=== PATIENT | male | born 1960 | race Caucasian/White ===

== ENCOUNTER 2017-05-07 15:06 | Observation (INO) | payer BC, OTHER ==
--- NOTE | 2017-05-07 16:19 | ED ---
General Adult HPI - General Chief complaint: Arrhythmia/Palpitations Stated complaint: Irr heartbeat Time Seen by Provider: 05/07/17 15:51 Source: patient, RN notes reviewed Mode of arrival: ambulatory Limitations: physical limitation - History of Present Illness Initial comments: Patient is a 56-year-old male with significant past medical history for hypertrophic cardiomyopathy presenting to the emergency room today with a chief complaint of shortness of breath. Patient does admit that he was at the family physician's office and was told come here to the emergency room for further evaluation. He does admit that he's had some symptoms of shortness breath. He states he's had this off-and-on for some time. He states seem to be a little worse today. He states he feels somewhat fatigued because he did not get much sleep last night. He states he had a routine appointment with his family doctor mentioned this to him. He states he had an EKG obtained and was advised complete emergency room for further evaluation. Patient currently denies any complaints or symptoms at this time. He denies any chest pain. States at times he notices the shortness of breath but is usually with exertion. No shortness breath at this time. Patient denies any recent fever, chills, chest pain, back pain, abdominal pain, nausea or vomiting, numbness or tingling, dysuria or hematuria, constipation or diarrhea, headaches or visual changes, or any other complaints. - Related Data Home Medications Medication Instructions Recorded Confirmed Aspirin 81 mg PO HS 02/07/14 05/07/17 Atorvastatin [Lipitor] 40 mg PO DAILY 02/07/14 05/07/17 Metoprolol Succinate [Toprol XL] 100 mg PO DAILY 05/07/17 05/07/17 Ubidecarenone [Co Q-10] 100 mg PO HS 05/07/17 05/07/17 Allergies Allergy/AdvReac Type Severity Reaction Status Date / Time No Known Allergies Allergy Verified 05/07/17 16:42 Review of Systems ROS Statement: Those systems with pertinent positive or pertinent negative responses have been documented in the HPI. ROS Other: All systems not noted in ROS Statement are negative. Past Medical History Past Medical History: Hyperlipidemia, Hypertension Additional Past Medical History / Comment(s): PT TO HAVE MRI AT [facility] FOR POSSIBLE DX OF HCM. History of Any Multi-Drug Resistant Organisms: None Reported Past Surgical History: Tonsillectomy Additional Past Surgical History / Comment(s): COLONOSCOPY Past Anesthesia/Blood Transfusion Reactions: No Reported Reaction Past Psychological History: No Psychological Hx Reported Smoking Status: Never smoker Past Alcohol Use History: None Reported Past Drug Use History: None Reported General Exam - General Exam Comments Initial Comments: General: The patient is awake and alert, in no distress, and does not appear acutely ill. Eye: Pupils are equal, round and reactive to light, extra-ocular movements are intact. No nystagmus. There is normal conjunctiva bilaterally. No signs of icterus. Ears, nose, mouth and throat: There are moist mucous membranes and no oral lesions. Neck: The neck is supple, there is no tenderness or JVD. Cardiovascular: There is a regular rate and rhythm. No murmur, rub or gallop is appreciated. Respiratory: Lungs are clear to auscultation, respirations are non-labored, breath sounds are equal. No wheezes, stridor, rales, or rhonchi. Musculoskeletal: Normal ROM, no tenderness. Strength 5/5. Sensation intact. Pulses equal bilaterally 2+. Neurological: A&O x 3. CN II-XII intact, There are no obvious motor or sensory deficits. Coordination appears grossly intact. Speech is normal. Skin: Skin is warm and dry and no rashes or lesions are noted. Psychiatric: Cooperative, appropriate mood & affect, normal judgment. Limitations: physical limitation Course Vital Signs 05/07/17 05/07/17 05/07/17 15:32 16:09 16:35 Temperature 98.1 F Pulse Rate 62 59 L Respiratory 18 18 16 Rate Blood Pressure 127/71 124/74 O2 Sat by Pulse 97 98 Oximetry EKG Findings - EKG Comments: EKG Findings:: EKG performed at 1539: Shows sinus bradycardia with first-degree AV block at 59 bpm. [place] interval 254. QRS 156. QT/QTc 456/451. Evidence for a left bundle-branch block. EKG compared to EKG that was performed at family physician's office earlier today shows no acute change. No other old EKG to compare to. Medical Decision Making - Medical Decision Making Case discussed in detail with attending physician Dr. Blanchard who did discuss the case with attending physician Dr. Mcguire. Patient's labs been reviewed elevated troponin 0.036. Remaining labs unremarkable. EKG showing no acute ST changes. Results were discussed with the patient. Patient be admitted to the hospital for serial enzymes. Started on heparin here in The emergency room. - Lab Data Result diagrams: 05/07/17 16:10 05/07/17 16:10 Lab Results 05/07/17 05/07/17 05/07/17 Range/Units 16:10 16:10 16:10 WBC 6.0 (3.8-10.6) k/uL RBC 5.37 (4.30-5.90) m/uL Hgb 16.3 (13.0-17.5) gm/dL Hct 45.6 (39.0-53.0) % MCV 84.8 (80.0-100.0) fL MCH 30.4 (25.0-35.0) pg MCHC 35.8 (31.0-37.0) g/dL RDW 12.5 (11.5-15.5) % Plt Count 144 L (150-450) k/uL Neutrophils % 49 % Lymphocytes % 34 % Monocytes % 11 % Eosinophils % 3 % Basophils % 1 % Neutrophils # 2.9 (1.3-7.7) k/uL Lymphocytes # 2.0 (1.0-4.8) k/uL Monocytes # 0.6 (0-1.0) k/uL Eosinophils # 0.2 (0-0.7) k/uL Basophils # 0.0 (0-0.2) k/uL PT (9.0-12.0) sec INR (<1.2) APTT (22.0-30.0) sec Sodium 142 (137-145) mmol/L Potassium 4.4 (3.5-5.1) mmol/L Chloride 107 (98-107) mmol/L Carbon Dioxide 25 (22-30) mmol/L Anion Gap 10 mmol/L BUN 17 (9-20) mg/dL Creatinine 0.99 (0.66-1.25) mg/dL Est GFR (MDRD) Af Amer >60 (>60 ml/min/1.73 sqM) Est GFR (MDRD) Non-Af >60 (>60 ml/min/1.73 sqM) Glucose 99 (74-99) mg/dL Calcium 9.7 (8.4-10.2) mg/dL Magnesium 2.0 (1.6-2.3) mg/dL Total Bilirubin 0.8 (0.2-1.3) mg/dL AST 33 (17-59) U/L ALT 37 (21-72) U/L Alkaline Phosphatase 95 (38-126) U/L Total Creatine Kinase 120 (55-170) U/L CK-MB (CK-2) 1.6 (0.0-2.4) ng/mL CK-MB (CK-2) Rel Index 1.3 Troponin I 0.036 H* (0.000-0.034) ng/mL Total Protein 6.3 (6.3-8.2) g/dL Albumin 4.0 (3.5-5.0) g/dL 05/07/17 Range/Units 16:10 WBC (3.8-10.6) k/uL RBC (4.30-5.90) m/uL Hgb (13.0-17.5) gm/dL Hct (39.0-53.0) % MCV (80.0-100.0) fL MCH (25.0-35.0) pg MCHC (31.0-37.0) g/dL RDW (11.5-15.5) % Plt Count (150-450) k/uL Neutrophils % % Lymphocytes % % Monocytes % % Eosinophils % % Basophils % % Neutrophils # (1.3-7.7) k/uL Lymphocytes # (1.0-4.8) k/uL Monocytes # (0-1.0) k/uL Eosinophils # (0-0.7) k/uL Basophils # (0-0.2) k/uL PT 10.5 (9.0-12.0) sec INR 1.1 (<1.2) APTT 24.1 (22.0-30.0) sec Sodium (137-145) mmol/L Potassium (3.5-5.1) mmol/L Chloride (98-107) mmol/L Carbon Dioxide (22-30) mmol/L Anion Gap mmol/L BUN (9-20) mg/dL Creatinine (0.66-1.25) mg/dL Est GFR (MDRD) Af Amer (>60 ml/min/1.73 sqM) Est GFR (MDRD) Non-Af (>60 ml/min/1.73 sqM) Glucose (74-99) mg/dL Calcium (8.4-10.2) mg/dL Magnesium (1.6-2.3) mg/dL Total Bilirubin (0.2-1.3) mg/dL AST (17-59) U/L ALT (21-72) U/L Alkaline Phosphatase (38-126) U/L Total Creatine Kinase (55-170) U/L CK-MB (CK-2) (0.0-2.4) ng/mL CK-MB (CK-2) Rel Index Troponin I (0.000-0.034) ng/mL Total Protein (6.3-8.2) g/dL Albumin (3.5-5.0) g/dL Disposition Clinical Impression: Elevated troponin, Atypical chest pain, Short of breath on exertion Disposition: ADMITTED IP TO THIS [facility] Condition: Good Referrals: Alonso Mcguire MD [Primary Care Provider] - 1-2 days Time of Disposition: 17:08
[2017-05-07 16:28] LABS: ALT 37 U/L (21-72); AST 33 U/L (17-59); Alkaline Phosphatase 95 U/L (38-126); Anion Gap 10 mmol/L; Basophils % (A) 1 %; Blood Urea Nitrogen 17 mg/dL (9-20); Calcium 9.7 mg/dL (8.4-10.2); Carbon Dioxide 25 mmol/L (22-30); Chloride 107 mmol/L (98-107); Eosinophils # (A) 0.2 k/uL (0-0.7); Eosinophils % (A) 3 %; Glucose 99 mg/dL (74-99); HCT 45.6 % (39.0-53.0); HGB 16.3 gm/dL (13.0-17.5); INR 1.1 (<1.2); Lymphocytes % (A) 34 %; MCH 30.4 pg (25.0-35.0); MCHC 35.8 g/dL (31.0-37.0); MCV 84.8 fL (80.0-100.0); Mean Platelet Volume 7.2; Monocytes # (A) 0.6 k/uL (0-1.0); Monocytes % (A) 11 %; Neutrophils # (A) 2.9 k/uL (1.3-7.7); Neutrophils % (A) 49 %; Partial Thromboplastin Time 24.1 sec (22.0-30.0); Platelet Count 144 k/uL (150-450); Potassium 4.4 mmol/L (3.5-5.1); Prothrombin Time 10.5 sec (9.0-12.0); RBC 5.37 m/uL (4.30-5.90); RDW 12.5 % (11.5-15.5); Sodium 142 mmol/L (137-145); Total Bilirubin 0.8 mg/dL (0.2-1.3); Total Protein 6.3 g/dL (6.3-8.2)
[2017-05-07 16:51] LABS: Creatine Kinase MB 1.6 ng/mL (0.0-2.4)
--- NOTE | 2017-05-07 16:55 | XR ---
EXAMINATION TYPE: XR chest 2V DATE OF EXAM: 05/07/2017 COMPARISON: NONE HISTORY: Irregular heartbeat TECHNIQUE: Frontal and lateral views of the chest are obtained. FINDINGS: There is no heart failure nor confluent pneumonic infiltrate. Heart appears slightly enlar ged. There are chest leads. There is no sign of pleural effusion. Bony thorax is intact. IMPRESSION: Mild cardiomegaly. No active cardiopulmonary disease.
[2017-05-07 16:56] LABS: Troponin I 0.036 ng/mL (0.000-0.034)
[2017-05-07] MEDS ORDERED: HEPARIN SODIUM,PORCINE 5,000 UNIT/ML 1 ML VIAL IV ONE (17:01)
[2017-05-07] MEDS ORDERED: SODIUM CHLORIDE 0.9% 1,000 ML IV ONE (17:01)
[2017-05-07] MEDS ORDERED: ASPIRIN 81 MG PO STA (17:01)
[2017-05-07] MEDS ORDERED: HEPARIN SOD,PORK IN 0.45% NACL 25,000 UNIT in 0.45% NACL 1 500ML.BAG IV SCH (17:15)
[2017-05-07 19:20] VITALS: TEMP 98
[2017-05-07] MEDS: NITROGLYCERIN OINT 1 INCH/GM PACKET TOPICAL SCH (22:23)
[2017-05-07 22:57] LABS: INR 1.1 (<1.2); Partial Thromboplastin Time 64.5 sec (22.0-30.0); Prothrombin Time 10.9 sec (9.0-12.0)
[2017-05-07 23:18] LABS: Creatine Kinase MB 1.3 ng/mL (0.0-2.4); Troponin I 0.033 ng/mL (0.000-0.034)
[2017-05-08] MEDS: NITROGLYCERIN OINT 1 INCH/GM PACKET TOPICAL SCH ×2 (00:30→06:39)
--- NOTE | 2017-05-08 00:54 | HP ---
HISTORY AND PHYSICAL CHIEF COMPLAINT: Arrhythmia, palpitations. HISTORY OF PRESENT ILLNESS: A 56-year-old male with history of hypertrophic cardiomyopathy who is scheduled to have surgery done at [facility] in the next week or 2. The patient has had significant shortness of breath and chest pain going up a few stairs at home with any exertion, working around the house. He was brought to the hospital. His EKG showed LVH with ST-T changes of critical nature and due to have exertional unstable angina, he was sent to the hospital to rule out myocardial infarction and evaluation by Cardiology. MEDICATIONS: At home medicines include: 1. Aspirin 81 mg daily. 2. Lipitor 40 mg daily. 3. Toprol-XL 100 daily. 4. Coenzyme Q daily. ALLERGIES: No known drug allergies. REVIEW OF SYSTEMS: Fourteen point review of systems negative except for mentioned in HPI. PAST MEDICAL HISTORY: GERD, dyslipidemia, hypertension, hypertrophic cardiomyopathy. PAST SURGICAL HISTORY: Surgery includes, colonoscopy, tonsillectomy. SOCIAL HISTORY: No smoking. No alcohol. PHYSICAL EXAM: Vital signs reviewed. Psych: He is alert and orient x3. CARDIOVASCULAR: S1, S2. LUNGS: Clear. CARDIOVASCULAR: Regular rate and rhythm. Musculoskeletal: Normal range of motion. Neurologic: Cranial nerves are intact. SKIN: Warm, dry. Psych: Fair mood and affect. Temp 98, pulse 59-62. EKG sinus Reginaldo, 1st degree AV block and LVH, ST changes. ASSESSMENT: 1. Exertional angina, unstable angina, hypercarbic cardiomyopathy with a myocardial infarction. 2. Thrombocytopenia. 3. Hypertension. 4. Elevated troponin, possibly non ST-elevation myocardial infarction. Await cardiology recommendations. Possible discharge home only if cleared by Cardiology. We will take him off work, rest until he sees Clinic for possible surgery. MMODL / IJN: [id number] /
[2017-05-08 03:44] VITALS: RESP 18
[2017-05-08 04:18] VITALS: BMI 29.7
[2017-05-08 04:37] LABS: Cholesterol 115 mg/dL (<200); HDL Cholesterol 43 mg/dL (40-60); LDL Cholesterol,Calculated 55 mg/dL (0-99); Triglycerides 87 mg/dL (<150)
[2017-05-08 05:03] LABS: Creatine Kinase MB 1.2 ng/mL (0.0-2.4); Troponin I 0.026 ng/mL (0.000-0.034)
[2017-05-08] MEDS ORDERED: ASPIRIN 325 MG TAB PO SCH (09:00)
[2017-05-08] MEDS ORDERED: ATORVASTATIN 40 MG TAB PO SCH (09:30)
[2017-05-08] MEDS ORDERED: METOPROLOL SUCCINATE (ER) 100 MG TAB.ER.24H PO SCH (09:30)
[2017-05-08] MEDS ORDERED: ASPIRIN 81 MG PO SCH (10:03)
--- NOTE | 2017-05-08 10:31 | CONS ---
CONSULTATION Mr. Hernandez is a 56-year-old male with history of hypertrophic cardiomyopathy, who is presenting with symptoms of dyspnea. The patient has been followed regarding the hypertrophic cardiomyopathy for a long time, has been seen by Dr. Varghese. Has underwent a cardiac catheterization in January 2014 had no evidence of obstructive coronary artery disease. He was recently seen at [facility] and has underwent a stress test in October of last year that revealed no evidence of significant abnormalities. Clinical observation was recommended. He is scheduled to be seen in second opinion at the [facility] coming up soon. The patient has mild chronic dyspnea on exertion without any change. Recently, he has not been feeling as well and was seen by Dr. Mcguire and subsequently referred to the emergency room and admitted. The patient denies any symptoms of dizziness. No palpitation. No significant chest pain. No syncope. No clear PND, orthopnea, or peripheral edema. He has no history of arrhythmia or history of dizziness. He has no family history of premature sudden or history of documented hypertrophic cardiomyopathy. He has underwent genetic testing at [facility]. His coronary risk factors are remarkable for hypertension and hyperlipidemia. He is nonsmoker, nondiabetic. His medications include aspirin once a day, Lipitor 40 mg daily, metoprolol succinate 100 mg daily. REVIEW OF SYSTEMS: RESPIRATORY SYSTEM: He has no history of documented asthma, emphysema or bronchitis. GI SYSTEM: No recent GI bleed. No peptic disease. SYSTEM: No dysuria or hematuria. NERVOUS SYSTEM: No stroke or seizure. PHYSICAL EXAMINATION: A 56-year-old male, alert, oriented, in no apparent distress. Blood pressure 111/50 with the heart rate in the 50s. HEAD: Normocephalic. EYES: Sclerae anicteric. NECK: Good carotid upstroke. No bruit. No jugular venous distention. LUNGS: Clear to auscultation. HEART: Regular rate and rhythm, S1, S2. No S3 with systolic murmur for 2/6 at the left upper sternal border increasing with Valsalva. No diastolic murmur. ABDOMEN: Soft, nontender. Positive bowel sounds. No organomegaly. EXTREMITIES: No edema. Intact distal pulses. LAB DATA: Lab data revealed a troponin of 0.036, 0.033, 0.026. BUN and creatinine 17 and 0.99. Potassium 4.4. Hemoglobin of 16. 3. Cholesterol 115, LDL 55. EKG revealed a sinus mechanism, rate of 51, first-degree AV block with evidence of left bundle branch block. Chest x-ray shows no acute infiltrate. IMPRESSION: 1. Symptoms of dyspnea on exertion related to the hypertrophic cardiomyopathy. 2. History of hypertension. 3. Hyperlipidemia. 4. Minimal elevation of troponin, nondiagnostic. RECOMMENDATION: I will stop the heparin. I will repeat the echocardiogram. Increase his level activity. If he remains stable, I would expect he should be able to be discharged home today and follow as an outpatient with the [facility] as scheduled. Thank you for this consult. We will follow with you. MMODL / IJN: [id number] /
--- NOTE | 2017-05-08 12:19 | ECHOF ---
Referral Reason:[facility] MEASUREMENTS -------- HEIGHT: 152.4 cm WEIGHT: 93.9 kg BP: IVSd: 2.2 cm (0.6 - 1.1) LVIDd: 3.9 cm (3.9 - 5.3) LVPWd: 2.0 cm (0.6 - 1.1) IVSs: 2.3 cm LVIDs: 2.8 cm LVPWs: 2.1 cm LA Diam: 4.5 cm (2.7 - 3.8) LAESV Index (A-L): 51.26 ml/m Ao Diam: 3.1 cm (2.0 - 3.7) AV Cusp: 2.3 cm (1.5 - 2.6) LA Diam: 4.8 cm (2.7 - 3.8) EPSS: 0.1 cm MV E Ramirez: 0.65 m/s MV DecT: 241 ms MV A Ramirez: 0.71 m/s MV E/A Ratio: 0.92 RAP: 5.00 mmHg RVSP: 27.67 mmHg MV EF SLOPE: 54.76 mm/s (70 - 150) MV EXCURSION: 1.44 cm (> 18.000) FINDINGS -------- Sinus rhythm. This was a technically good study. The left ventricular size is normal. There is normal global left ventricular contractility. Moder ate ZAIN with peak LVOT gradient of { maxPG 80mmhg and Lvot mean pg of 29.21mmhg}. LVOT Obstruction There is severe concentric left ventricular hypertrophy that measures 2.2cm. The right ventricle is normal in size. LA is severely dilated >40 ml/m2 The right atrium is normal in size. The aortic valve is trileaflet, and appears structurally normal. No aortic stenosis or regurgitation. The mitral valve is normal. Moderate mitral regurgitation is present. Mild tricuspid regurgitation present. There is no evidence of pulmonary hypertension. The right v entricular systolic pressure, as measured by Doppler, is 27.67mmHg. Trace/mild (physiologic) pulmonic regurgitation. The aortic root size is normal. There is no pericardial effusion. CONCLUSIONS -------- 1. Sinus rhythm. 2. The left ventricular size is normal. 3. There is normal global left ventricular contractility. 4. Moderate ZAIN with peak LVOT gradient of { maxPG 80mmhg and Lvot mean pg of 29.21mmhg}. 5. LVOT Obstruction 6. There is severe concentric left ventricular hypertrophy that measures 2.2cm. 7. The right ventricle is normal in size. 8. LA is severely dilated >40 ml/m2 9. The aortic valve is trileaflet, and appears structurally normal. No aortic stenosis or regurgitati on. 10. Moderate mitral regurgitation is present. 11. Mild tricuspid regurgitation present. 12. There is no evidence of pulmonary hypertension. 13. Trace/mild (physiologic) pulmonic regurgitation. 14. The aortic root size is normal. 15. There is no pericardial effusion. NANOTECHNICIAN: Michelle Kilpatrick RDCS
[2017-05-08 14:37] VITALS: BP 109/62; PULSE 53
== END 2017-05-08 14:30 | disposition home or self-care (01) ==
LOC: EC 15:06 → 6SEL 17:08 → 2ORMAIN 05-08 07:37 → UNDODISOB 05-08 14:30
PROVIDERS: ADMIT Family Medicine; ATTEND Family Medicine
DX: I42.2 Other hypertrophic cardiomyopathy (principal); I10 Essential (primary) hypertension; K21.9 Gastro-esophageal reflux disease without esophagitis; E78.5 Hyperlipidemia, unspecified; R79.89 Other specified abnormal findings of blood chemistry; D69.6 Thrombocytopenia, unspecified; Z79.82 Long term (current) use of aspirin; Z79.899 Other long term (current) drug therapy
CPT/HCPCS: 96366 ×8; 96376 ×2; 96365 ×2; 99285 ×2; 36415; 93005 ×2; 93306; 80061; 80053; 82550 ×2; 82553 ×2; 83735; 84484 ×2; 85025; 85610; 85730 ×2; 71046; G0378 ×2; J1644 ×2

== ENCOUNTER → 2024-09-19 | Outpatient (CLI) | payer BC ==
[2024-09-19 10:20] LABS: HCT 48.5 % (39.6-50.0); HGB 16.3 g/dL (13.0-17.0); MCHC 33.6 g/dL (32.0-37.0); MCV 86.1 FL (80.0-97.0); Mean Platelet Volume 10.1 FL (9.5-12.2); NRBC Per 100 WBC 0 X 10*3/uL (0.00-0.01); Platelet Count 166 X 10*3/uL (140-440); RBC 5.63 X 10*6/uL (4.40-5.60); RDW 11.9 % (11.5-14.5)
[2024-09-19 10:48] LABS: ALT 27 U/L (10-49); AST 27 U/L (14-35); Albumin 4.2 g/dL (3.8-4.9); Albumin/Globulin Ratio 2.21 Ratio (1.60-3.17); Alkaline Phosphatase 86 U/L (41-126); BUN/Creat Ratio 19.36 Ratio (12.00-20.00); Blood Urea Nitrogen 21.3 mg/dL (9.0-27.0); Calcium 8.8 mg/dL (8.7-10.3); Carbon Dioxide 26.2 mmol/L (21.6-31.8); Chloride 106 mmol/L (96-109); Chol/HDL Ratio 2.72 Ratio; Globulin 1.9 g/dL (1.6-3.3); Glucose 94 mg/dL (70-110); Potassium 4.3 mmol/L (3.5-5.5); Sodium 142 mmol/L (135-145); Total Bilirubin 0.8 mg/dL (0.3-1.2); Total Protein 6.1 g/dL (6.2-8.2)
[2024-09-19 11:10] LABS: Prostate Specific Antigen 2.11 ng/mL (0.000-4.500)
== END | disposition home or self-care (01) ==
LOC: LABWHC1 07:17
PROVIDERS: ATTEND Family Medicine
DX: Z00.00 Encounter for general adult medical examination without abnormal findings (principal); I10 Essential (primary) hypertension; Z79.899 Other long term (current) drug therapy; R97.20 Elevated prostate specific antigen [PSA]
CPT/HCPCS: 36415; 80053; 80061; 83036; 84153; 84403; 84443; 85027

== ENCOUNTER 2024-10-06 07:32 | Day surgery (SDC) | payer BC, OTHER ==
[2024-10-05 08:39] VITALS: BMI 30.1
[2024-10-06 07:56] VITALS: TEMP 97.6
[2024-10-06] MEDS: IV FLUID CONTINUATION 1,000 ML IV ONE ×2 (08:05→08:51)
[2024-10-06] MEDS: LACTATED RINGERS 1,000 ML IV SCH (08:09)
[2024-10-06] MEDS ORDERED: GLYCOPYRROLATE 0.2 MG/ML 2 ML VIAL ONE (08:33)
[2024-10-06] MEDS ORDERED: PROPOFOL 10 MG/ML 20 ML VIAL IV ONE (08:33)
[2024-10-06] MEDS ORDERED: LIDOCAINE 1% INJ 10MG/ML (20 ML MDV) ONE (08:33)
--- NOTE | 2024-10-06 08:54 | P.PCN ---
Date of Procedure: 10/06/24 Preoperative Diagnosis: Screening Postoperative Diagnosis: Normal colon Internal hemorrhoid Procedure(s) Performed: Colonoscopy Anesthesia: MAC Surgeon: Chika Brennan Pathology: none sent Condition: stable Disposition: same day Indications for Procedure: 64-year-old male presents today for screening colonoscopy. Denies any blood in his stool. No previous history of colon polyps. Risks, benefits and alternatives were provided to the patient. All questions answered. Operative Findings: Overall, normal-appearing colon Internal hemorrhoid Description of Procedure: The patient was brought to the endoscopy suite and placed in left lateral decubi tus position and adequate sedation was achieved using conscious sedation. Digital rectal exam was performed and mild internal hemorrhoids were palpated. An endoscope was then placed in the rectum and advanced to the cecum as identified by landmarks including the appendiceal orifice and the ileocecal valve. The prep was good. The colonoscope was then slowly withdrawn, examining for any mucosal abnormalities. The cecum, ascending, transverse, descending and sigmoid colon were visualized adequately. There were no large neoplastic lesions noted throughout the colon. No obvious polyps noted throughout the colon. No evidence of diverticulosis. Hemostasis was maintained. Retroflexion was performed in the rectum and internal hemorrhoid. Excess air was removed, the colonoscope withdrawn and the procedure terminated. The patient was then transferred to the recovery unit in stable condition. Repeat colonoscopy should be performed in 10 years.
[2024-10-06 09:17] VITALS: BP 110/68; PULSE 57; RESP 18
== END 2024-10-06 09:44 | disposition home or self-care (01) ==
LOC: ORWHC2ENDO 07:32
PROVIDERS: ATTEND Surgery
DX: Z12.11 Encounter for screening for malignant neoplasm of colon (principal); K64.8 Other hemorrhoids; I10 Essential (primary) hypertension; E78.5 Hyperlipidemia, unspecified; Z88.8 Allergy status to other drugs, medicaments and biological substances; Z79.82 Long term (current) use of aspirin; Z79.899 Other long term (current) drug therapy
CPT/HCPCS: 45378; J2003; J2704; J1596